=== PATIENT | female | born 1985 | race Caucasian/White ===

== ENCOUNTER 2017-01-23 00:01 | Emergency (ER) | payer MEDICAID ==
[~2017-01-23 00:01] MED LIST: CYCL5TAB PO; MOTR200T4 PO
[2017-01-23 00:36] VITALS: BP 109/70; PULSE 81
[2017-01-23 00:45] VITALS: RESP 18; TEMP 97.9
[2017-01-23] MEDS ORDERED: ACETAMINOPHEN 325 MG TAB PO ONE (01:00)
--- NOTE | 2017-01-23 01:03 | PD ---
HPI Chief Complaint headache and abdominal pain Date Seen: Jan 23, 2017 Travel History International Travel<30 Days: No Contact w/Intl Traveler<30Days: No Known Affected Area: No History of Present Illness HPI This is a 31y/o at 17w who presents with a 2 month history of head congestion worsening to a headache for the last week, which she has not taken anything for. Pt has a know umbilical hernia and reports some pain in the area with palpation. Nausea/vomiting yesterday which she attributes to her head congestion. care with Dr. Urbina, no records available for review. Para: 3 : 4 History Past Medical History Medical History: Denies Significant Hx Obstetric History Obstetric History 3 FT , uncomplicated per patient Past Surgical History Surgical History: No Previous Surgery Family History Family History: Negative Social History Alcohol Use: No Tobacco Use: No Substance Abuse: No Allergies-Medications (Allergen,Severity, Reaction): Coded Allergies: Penicillin (Verified Allergy, Unknown, 06/28/16) Home Meds Active Scripts Cyclobenzaprine (Flexeril)5 Mg Tab5 Mg PO TID PRN (SPASM) #12 TAB Ref 0 Prov:Dennis Spicer MD 06/28/16 Ibuprofen (Motrin Ib)200 Mg [id number] Mg PO Q6H PRN (PAIN SCALE 1 TO 10) #20 TAB Ref 0 Prov:Dennis Spicer MD 06/28/16 Review of Systems Except as stated in HPI: all other systems reviewed are Neg Physical Exam Narrative GENERAL: Well-nourished, well-developed patient. SKIN: Warm and dry. HEAD: Normocephalic and atraumatic. EYES: No scleral icterus. No injection or drainage. ENT: No nasal drainage noted. Mucous membranes pink. Airway patent. NECK: Supple, trachea midline. No JVD. CARDIOVASCULAR: Regular rate and rhythm without murmurs, gallops, or rubs. RESPIRATORY: Breath sounds equal bilaterally. No accessory muscle use. BREASTS: Bilateral exam showed no masses , no retractions, no nipple discharge. ABDOMEN/GI: Abdomen soft, non-tender, bowel sounds present, no rebound, no guarding Gravid to 20 weeks size GENITOURINARY: External Genitalia: intact and normal in appearance VE: deferred FHT's: + on doppler EXTREMITIES: No cyanosis or edema. BACK: Nontender without obvious deformity. No CVA tenderness. NEUROLOGICAL: Awake and alert. Motor and sensory grossly within normal limits. Five out of 5 muscle strength in all muscle groups. Normal speech. Data Data Vital Signs Reviewed: Yes Orders Vital Signs (Adult) .ON ADMISSION (01/23/17 00:28) ^ Labor Status (01/23/17 00:28) Acetaminophen (Tylenol) (01/23/17 01:00) MDM Medical Record Reviewed: No Narrative Course / MDM 31y/o at 17w with palpable pain in known umbilical hernia, headaches due to head congestion. -stable bps -no evidence of incarcerated hernia -stable Plan -d/c home -f/u with Dr. Urbina as scheduled -discussed comfort measures Diagnosis Diagnosis: Primary Impression: Umbilical hernia without obstruction or gangrene Additional Impression: Congestion of nasal sinus Disposition: 01 DISCHARGE HOME Condition: Good Gogo Huffman MD Jan 23, 2017 01:03
== END 2017-01-23 02:46 | disposition home or self-care (01) ==
LOC: HOBED 00:01
DX: O26.892 Other specified pregnancy related conditions, second trimester (principal); K42.9 Umbilical hernia without obstruction or gangrene; R09.81 Nasal congestion; Z3A.17 17 weeks gestation of pregnancy
CPT/HCPCS: 99283

== ENCOUNTER 2017-01-26 19:02 | Emergency (ER) | payer MEDICAID ==
[~2017-01-26] VITALS: Ht 162.6 cm; Wt 82.0 kg
[2017-01-26 19:07] VITALS: BP 124/78; PULSE 98; RESP 16; TEMP 98.4; O2SAT 98
--- NOTE | 2017-01-26 21:33 | PD ---
Physical Exam Date Seen by Provider: Jan 26, 2017 Time Seen by Provider: 21:31 Narrative 31 yo female here for evaluation of cold like symptoms. Has had them for a few days. Son here with similar. Cough. Sore throat. Fevers. Vitals are stable in triage. Awaiting bed placement. Data Data Last Documented VS Vital Signs Date Time Temp Pulse Resp B/P Pulse Ox O2 Delivery O2 Flow Rate FiO2 01/26/17 19:07 98.4 98 16 124/78 98 Room Air [facility] Medical Record Reviewed: Yes Supervised Visit with NIKHIL: Pankaj Mccarthy Jan 26, 2017 21:33
--- NOTE | 2017-01-26 22:21 | PD ---
HPI Chief Complaint: Cold / Flu Symptoms Time Seen by Provider: 21:48 Travel History International Travel<30 days: No Contact w/Intl Traveler<30days: No Traveled to known affect area: No History of Present Illness HPI The patient was seen and examined in the presence of the nurse. This patient is 17 weeks . She complains of runny nose congestion and cough. She also would like to make sure the baby is okay. She is not having vaginal bleeding or discharge. She occasionally gets pelvic cramping but nothing sustained. PFSH Past Medical History Medical History: Denies Significant Hx Diminished Hearing: No ?: Past Surgical History Surgical History: No Previous Surgery Social History Alcohol Use: No Tobacco Use: No Substance Use: No Allergies-Medications (Allergen,Severity, Reaction): Coded Allergies: Penicillin (Verified Allergy, Unknown, 01/26/17) Reported Meds & Prescriptions Reported Meds & Active Scripts Active Review of Systems General / Constitutional: No: Fever HENT: No: Headaches Cardiovascular: No: Chest Pain or Discomfort Respiratory: No: Cough Gastrointestinal: No: Nausea Genitourinary: No: Dysuria Musculoskeletal: No: Myalgias Physical Exam Narrative GENERAL: Well-nourished, well-developed patient. SKIN: Focused skin assessment warm/dry. HEAD: Normocephalic. EYES: No scleral icterus. No injection or drainage. NECK: Supple, trachea midline. No JVD or lymphadenopathy. CARDIOVASCULAR: Regular rate and rhythm without murmurs, gallops, or rubs. RESPIRATORY: Breath sounds equal bilaterally. No accessory muscle use. GASTROINTESTINAL: Abdomen soft, non-tender, nondistended. MUSCULOSKELETAL: No cyanosis, or edema. BACK: Nontender without obvious deformity. No CVA tenderness. Data Data Last Documented VS Vital Signs Date Time Temp Pulse Resp B/P Pulse Ox O2 Delivery O2 Flow Rate FiO2 01/26/17 19:07 98.4 98 16 124/78 98 Room Air MDM Medical Decision Making Medical Screen Exam Complete: Yes Emergency Medical Condition: Yes Medical Record Reviewed: Yes Differential Diagnosis Flu syndrome, bronchitis, URI Narrative Course I have reviewed the patient's electronic medical record. Patient was seen at labor and delivery a couple days ago for umbilical hernia Patient's presentation is consistent with a viral URI No indication for antibiotics I did a bedside transabdominal ultrasound which reveals an intrauterine fetus with good heartbeat and movement Recommend primary care and OB follow-up Diagnosis Primary Impression: Viral upper respiratory tract infection Additional Impression: Pelvic cramping in antepartum period Additional Instructions: The patient was advised to follow up with their physician and return if they worsen. Med/Other Pt SpecificInfo: Other Disposition: 01 DISCHARGE HOME Condition: Stable Boyd Alvarez MD Jan 26, 2017 22:21
[2017-01-26] MEDS ORDERED: ACETAMINOPHEN 325 MG TAB PO ONE (22:30)
== END 2017-01-26 23:21 | disposition home or self-care (01) ==
LOC: NEPD 19:02
DX: J06.9 Acute upper respiratory infection, unspecified (principal); O26.892 Other specified pregnancy related conditions, second trimester; R10.2 Pelvic and perineal pain; Z88.0 Allergy status to penicillin; Z3A.17 17 weeks gestation of pregnancy
CPT/HCPCS: 99284